=== PATIENT | female | born 1985 | race Caucasian/White ===

== ENCOUNTER 2019-05-02 20:33 | Emergency (ER) | payer OTHER ==
[~2019-05-02] VITALS: Ht 172.7 cm; Wt 72.6 kg
[2019-05-02 21:00] VITALS: BP 134/63
[2019-05-02] MEDS ORDERED: AMOX500C PO (21:29)
[2019-05-02] MEDS ORDERED: METH4TAB2 PO (21:29)
--- NOTE | 2019-05-02 21:29 | PHYS DOC ---
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 Patient states also been running fevers. Patient states that she can drink and eat food but it is painful so she has tried not to drink or eat anything. Patient states she's been alternating Tylenol and ibuprofen to help with the pain. Patient denies any nausea or vomiting, diarrhea. ([facility]) Review of Systems Review of Systems Constitutional: Denies fever or chills [] Eyes: Denies change in visual acuity, redness, or eye pain [] HENT: Denies nasal congestion. sore throat and ear pain.[] Neurologic: Denies headache, focal weakness or sensory changes [] All other systems were reviewed and found to be within normal limits, except as documented in this note. ([facility]) Allergies Allergies Allergies Coded Allergies Type Severity Reaction Last Updated Verified No Known Drug Allergies 05/02/19 No (CLAUDE NUNES DO) Physical Exam Physical Exam Constitutional: Well developed, well nourished, no acute distress, non-toxic appearance. [] HENT: Normocephalic, atraumatic, bilateral external ears normal, oropharynx moist, no oral exudates, nose normal. Bilateral ear tympanic boggy. Throat reddened with left tonsil 2+ with exudates.[] Eyes: PERRLA, EOMI, conjunctiva normal, no discharge. [] Neck: Normal range of motion, no tenderness, supple, no stridor. [] Cardiovascular:Heart rate regular rhythm, no murmur [] Lungs & Thorax: Bilateral breath sounds clear to auscultation [] Skin: Warm, dry, no erythema, no rash. [] Neurologic: Alert and oriented X 3, normal motor function, normal sensory function, no focal deficits noted. [] Psychologic: Affect normal, judgement normal, mood normal. [] ([facility]) Current Patient Data Vital Signs Vital Signs Date Time Temp Pulse Resp B/P (MAP) Pulse Ox O2 Delivery O2 Flow Rate FiO2 05/02/19 21:00 98.8 88 16 134/63 (86) 98 Room Air 98.8 (CLAUDE NUNES DO) EKG EKG [] (MARVEL RYDER APRN) Radiology/Procedures Radiology/Procedures [] (MARVEL RYDER APRN) Course & Med Decision Making Course & Med Decision Making Patient is a 33 year old Female who presents with sore throat and left ear pain for 2 weeks. Patient states also been running fevers. Patient states that she can drink and eat food but it is painful so she has tried not to drink or eat anything. Patient states she's been alternating Tylenol and ibuprofen to help with the pain. Patient denies any nausea or vomiting, diarrhea. Lungs are clear to auscultation all lobes. Skin pink warm and dry. Mucous membranes are moist. Bilateral tympanic membranes are boggy. Tympanic membrane intact. Throat is reddened with left tonsil 2+ swelling with exudates seen. No Uvula deviation. Strep positive. Patient is treated with Amoxicillin and a Medrol dose pack. Patient to follow up with primary care provider. (MARVEL RYDER APRN) Dragon Disclaimer Dragon Disclaimer This electronic medical record was generated, in whole or in part, using a voice recognition dictation system. (MARVEL RYDER APRN) Departure Departure Impression: Primary Impression: Strep throat Disposition: 01 HOME, SELF-CARE Condition: STABLE Referrals: NO PCP (PCP) Patient Instructions: Strep Throat Additional Instructions: Follow up with primary care Provider. Take medications with food. Scripts Hydrocodone Bit/Acetaminophen (HYDROCODONE-APAP 5-325 ) 1 Tab Tablet 1 TAB PO PRN Q6HRS PRN for PAIN, #10 TAB 0 Refills Prov: MARVEL RYDER APRN 05/02/19 Methylprednisolone (MEDROL) 4 Mg Tab.ds.pk 1 PKG PO UD, #1 PKG Prov: MARVEL RYDER APRN 05/02/19 Amoxicillin (AMOXICILLIN) 500 Mg Capsule 1 CAP PO BID, #20 CAP Prov: MARVEL RYDER APRN 05/02/19 Attending Signature Attending Signature I have reviewed the PA/ENVIRONMENTAL TECHNOLOGY PROFESSOR's note and plan of care. I was available for consultation as needed during the patient's visit in the emergency department. I agree with the clinical impression, plan, and disposition. (CLAUDE NUNES DO) MARVEL RYDER APRN May 02, 2019 21:29 CLAUDE NUNES DO May 03, 2019 04:22
[2019-05-02] MEDS ORDERED: HYDR-2761 PO (21:48)
== END 2019-05-02 21:49 | disposition home or self-care (01) ==
LOC: ER 20:33
DX: J02.0 Streptococcal pharyngitis (principal); B95.0 Streptococcus, group A, as the cause of diseases classified elsewhere
CPT/HCPCS: 87880; 99283

== ENCOUNTER 2020-03-09 17:15 | Emergency (ER) | payer OTHER ==
[~2020-03-09] VITALS: Ht 172.7 cm; Wt 68.1 kg
[~2020-03-09 17:15] MED LIST: AMOX500C PO; HYDR-2761 PO; METH4TAB2 PO
[2020-03-09 17:40] VITALS: BP 126/59
[2020-03-09] MEDS ORDERED: AMOX875T PO (18:31)
--- NOTE | 2020-03-09 18:31 | PHYS DOC ---
Past Medical History Past Medical History: No Pertinent History Past Surgical History: Other Smoking Status: Current Every Day Smoker Alcohol Use: None Drug Use: None General Adult EDM: Chief Complaint: DENTAL PROBLEM HPI: HPI: Patient is a 34 year old female patient presents from home with sore throat, dental pain. 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 States she has not checked her temperature at home, she does not know where the monitor is. States her Thursday once had the same complaints at this time. States she had been taking some Benadryl and some ibuprofen, which has helped her a little bit, however she still has a sore throat and feels malaise. States she does have plans to follow-up with a dentist, now that she is on her family members insurance, reports dental pain to left upper jaw Review of Systems: Review of Systems: Constitutional: Denies fever or chills. However reports she has not checked her temperature. [] Eyes: Denies change in visual acuity. [] HENT: Denies nasal congestion reports sore throat as well as some bilateral ear discomfort intermittently Respiratory: Denies shortness of breath, reports occasional dry cough Cardiovascular: Denies chest pain or edema. [] GI: Denies abdominal pain, nausea, vomiting, bloody stools or diarrhea. [] Musculoskeletal: Denies back pain or joint pain. [] Integument: Denies rash. [] Neurologic: Denies headache, focal weakness or sensory changes. [] Heart Score: Risk Factors: Risk Factors: DM, Current or recent (<one month) smoker, HTN, HLP, family history of CAD, obesity. Risk Scores: Score 0 - 3: 2.5% MACE over next 6 weeks - Discharge Home Score 4 - 6: 20.3% MACE over next 6 weeks - Admit for Clinical Observation Score 7 - 10: 72.7% MACE over next 6 weeks - Early Invasive Strategies Allergies: Allergies: Allergies Coded Allergies Type Severity Reaction Last Updated Verified No Known Drug Allergies 05/02/19 No Physical Exam: PE: Constitutional: Well developed, well nourished, no acute distress, non-toxic appearance. [] HENT: Normocephalic, atraumatic, bilateral external ears normal, oropharynx moist, tonsils 2+, purulent, erythematous, nose normal. [] Eyes: PERRLA, EOMI, conjunctiva normal, no discharge. [] Neck: Normal range of motion, no tenderness, supple, no stridor. [] Cardiovascular:Heart rate regular rhythm, no murmur [] Lungs & Thorax: Bilateral breath sounds clear to auscultation [] Abdomen: Bowel sounds normal, soft, no tenderness, no masses, no pulsatile masses. [] Skin: Warm, dry, no erythema, no rash. [] Extremities: No tenderness, no cyanosis, no clubbing, ROM intact, no edema. [] Neurologic: Alert and oriented X 3, normal motor function, normal sensory function, no focal deficits noted. [] Psychologic: Affect normal, judgement normal, mood normal. [] Current Patient Data: Vital Signs: Vital Signs Date Time Temp Pulse Resp B/P (MAP) Pulse Ox O2 Delivery O2 Flow Rate FiO2 03/09/20 17:40 98.7 67 18 126/59 (81) 100 Room Air 98.7 EKG: EKG: [] Radiology/Procedures: Radiology/Procedures: [] Course & Med Decision Making: Course & Med Decision Making Pertinent Labs and Imaging studies reviewed. (See chart for details) [] Given symptoms, oropharyngeal exam, and exposure to strep, will treat presumptive for strep at this time. Patient agreed with this plan, will also treat children Dragon Disclaimer: Rigo Disclaimer: This electronic medical record was generated, in whole or in part, using a voice recognition dictation system. Departure Departure Impression: Primary Impression: Strep throat Disposition: 01 HOME, SELF-CARE Condition: GOOD Referrals: NO PCP (PCP) Patient Instructions: Strep Throat Additional Instructions: As we discussed, you likely have strep throat as well. You most likely going to be contagious for the next few days as well. Make sure you take the antibiotic for the entire duration, until it is completed. You may take Tylenol or ibuprofen as needed for discomfort and for any fevers that develop. Make sure you are staying hydrated. In 3 days, replace your toothbrush to prevent re- contamination. Scripts Amoxicillin (AMOXICILLIN) 875 Mg Tablet 1 TAB PO BID, #14 TAB Prov: AMARILYS MYERS APRN 03/09/20 Justicifation of Admission Dx: Justifications for Admission: Justification of Admission Dx: N/A AMARILYS MYERS APRN Mar 09, 2020 18:31
== END 2020-03-09 19:19 | disposition home or self-care (01) ==
LOC: ER 17:15
DX: J02.0 Streptococcal pharyngitis (principal); B95.5 Unspecified streptococcus as the cause of diseases classified elsewhere; K08.89 Other specified disorders of teeth and supporting structures; R05 Cough; F17.200 Nicotine dependence, unspecified, uncomplicated
CPT/HCPCS: 99283